=== PATIENT | female | born 1960 | race Caucasian/White ===

== ENCOUNTER 2017-08-28 07:49 | Emergency (ER) | payer MEDICARE ==
[~2017-08-28] VITALS: Ht 177.8 cm; Wt 78.0 kg
[2017-08-28 07:55] VITALS: BP 138/87
[2017-08-28] MEDS ORDERED: OXYcodone/APAP 10/325MG TABLET ONE (08:22)
[2017-08-28] MEDS ORDERED: PROMETHAZINE 25MG TABLET ONE (08:22)
[2017-08-28] MEDS ORDERED: OXYcodone/APAP 10/325MG TABLET PO ONE (08:30)
[2017-08-28] MEDS ORDERED: PROMETHAZINE 25MG TABLET PO ONE (08:30)
== END 2017-08-28 10:24 | disposition home or self-care (01) ==
LOC: ED 10:18
DX: S29.012A Strain of muscle and tendon of back wall of thorax, initial encounter (principal); S90.02XA Contusion of left ankle, initial encounter; M79.7 Fibromyalgia; G89.29 Other chronic pain; Z79.899 Other long term (current) drug therapy; F17.200 Nicotine dependence, unspecified, uncomplicated; W18.30XA Fall on same level, unspecified, initial encounter; Y93.01 Activity, walking, marching and hiking; Y99.8 Other external cause status; Y92.009 Unspecified place in unspecified non-institutional (private) residence as the place of occurrence of the external cause
CPT/HCPCS: 72072; 73600; 99284; Q0169